=== PATIENT | female | born 2000 | race Caucasian/White ===

== ENCOUNTER 2024-06-04 16:00 | Emergency (ER) | payer OTHER, SELFPAY ==
[2024-06-04 16:06] VITALS: BP 153/95; PULSE 107; RESP 18; TEMP 36.7; O2SAT 99; BMI 20.1
[2024-06-04 16:28] LABS: Microscopic, Urine URINE MICROSCOPIC (MICROSCOPIC)
--- NOTE | 2024-06-04 17:10 | ED_ITS ---
<Statement entered by Gilma Gonsalez DO - 06/05/24 00:39> I was consulted by the ROSA, and we discussed the complexity of the problems being addressed. I approved the treatment and management plan for this patient's care in the emergency department, thus performing a substantive portion of the medical decision making. Patient has findings consistent with enteritis on CT scan. She also has a rim-enhancing cyst with internal complexity and possible enhancing soft tissue mural nodularity according to radiology read of the CT scan, which is concerning. She does not have any concern for torsion based on exam, she is not have any pain on that side. Cyst also is not large enough to be concerning for torsion. 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 I feel that she would benefit from very close follow-up with gynecology for this, so instructions were given. Gilma Gonsalez DO Discharge Plan Disposition Patient Disposition: Home, Self-Care Prescriptions Prescriptions: New Gas Relief (simethicone) 250 mg capsule 250 mg PO BID PRN (Reason: abdominal distention) Qty: 60 0RF Referrals Follow up/Referrals: Sol Perez DO [Staff Physician] - See instructions Ava Chavez [Primary Care Provider] - See instructions Manuel Murillo II, MD [Staff Physician] - See instructions (Constipation PIMENTEL) Activity Restrictions/Add. Instructions Additional Instructions/Restrictions: Please utilize the disimpaction sheet that I went over with you along with taking the simethicone. I have referred you to gastroenterology for further workup of constipation, and I recommend follow-up with your [employer] for evaluation of the ovarian cyst within 48 hours. Clinical Impressions Clinical Impression: Enterocolitis Constipation Qualifiers: Constipation type: unspecified constipation type Qualified Code(s): K59.00 - Constipation, unspecified Ovarian cyst Qualifiers: Laterality: right Qualified Code(s): N83.201 - Unspecified ovarian cyst, right side Instructions Patient Instructions: DI for Acute Abdominal Pain Print Language Print Language: Nauruan Discharge ED Provider: Gilma Gonsalez General Adult HPI General Chief complaint: Abdominal Pain Stated complaint: abd Pain Time Seen by Provider: 06/04/24 17:10 Mode of Arrival: Ambulatory Source of Information: Patient Description of Symptoms (Recalled from ER Triage Doc. by RN): Pt presents with c/o left lower abdominal pain that started this AM after she woke up. Pt states her last BM was yesterday. Denies n/v/d History of Present Illness HPI narrative: Patient presents for evaluation of left lower quadrant pain. Patient states that she has had acute onset and continued left lower quadrant abdominal pain all day. She denies however nausea vomiting and diarrhea. She reports passing flatus. Last BM was yesterday. She is not intolerant of oral intake. Denies fever chills shortness of breath hemoptysis hematochezia melena hematemesis hematuria vaginal discharge. Related Data Previous Rx's ?Medication ?Instructions ?Recorded simethicone 250 mg capsule (Gas 250 mg PO BID PRN abdominal 06/04/24 Relief (simethicone)) distention #60 caps Allergies Allergy/AdvReac Type Severity Reaction Status Date / Time No Known Allergies Allergy Verified 06/04/24 16:11 [facility] Disclaimer: The information contained in this section may have been updated after the patient was seen, as this information can be updated by other users. Social History Smoking Status: Current every day smoker alcohol intake: never current occupational status: employed Travel in the last 8 weeks: None ROS Obtained: Yes Systems reviewed as appropriate & no additional complaints except as documented Physical Exam General General appearance: alert and in no apparent distress Respiratory Respiratory exam: Present normal lung sounds bilaterally Cardiovascular Cardiovascular exam: Present tachycardia Neurological Exam Neurological exam: Present alert and oriented X3 Medical Decision Making Medical Records Medical records reviewed: Yes I reviewed the patient's medical records. Screening: Per USPSTF and CDC recommendations, given the prevalence of disease in our region, it is our hospital?s policy to screen for HIV and viral Hepatitis for all patients aged 18 and over and those with ongoing risk factors. Chris Inquiry Pt receiving controlled substance: No Vital Signs: 06/04/24 16:06 06/04/24 19:38 Temperature 98.1 F 98.3 F Temperature Source Oral Oral Pulse Rate 15 L Pulse Rate [Left] 107 H Respiratory Rate 18 18 Blood Pressure 120/71 Blood Pressure [Right Arm] 153/95 H Blood Pressure Mean [Right Arm] 114 Blood Pressure Source [Right Arm] Automatic Cuff Blood Pressure Position [Right Arm] Sitting 02 Sat by Pulse Oximetry 99 Oxygen Delivery Method Room Air Room Air Lab Data Lab results reviewed: Yes I reviewed the patient's lab results. Lab Results 06/04/24 16:25: Urine Color Yellow, Urine Appearance Slightly cloudy, Urine pH 6.5, Ur Specific [place] >= 1.030, Urine Protein Negative, Urine Glucose (UA) Negative, Urine Ketones Negative, Urine Blood Negative, Urine Nitrate Negative, Urine Bilirubin Negative, Urine Urobilinogen 1.0, Ur Leukocyte Esterase Negative, Urine RBC Occasional, Urine WBC 3-5, Ur Squamous Epith Cells 3-5, Urine Bacteria 3+, Urine Mucus Trace, Urine HCG, Qual Negative 06/04/24 17:32: WBC 9.2, RBC 4.39, Hgb 13.3, Hct 37.5, MCV 85.4, MCH 30.3, MCHC 35.5 H, RDW 11.9, Plt Count 257, MPV 9.7, Neut % (Auto) 64.6, Lymph % (Auto) 26.7, [place] % (Auto) 7.3, Eos % (Auto) 0.8, Baso % (Auto) 0.4, Neut # (Auto) 5.9, Lymph # (Auto) 2.5, [place]ney # (Auto) 0.7, Eos # (Auto) 0.1, Baso # (Auto) 0.0, Sodium 139, Potassium 3.6, Chloride 105, Carbon Dioxide 24, Anion Gap 13.6, BUN 14, Creatinine 0.70, Estimated Creat Clear 113, Estimated GFR 105, Est GFR ( Amer) 127, Glucose 87, Calcium 9.2, Total Bilirubin 0.4, AST 24, ALT 15, Alkaline Phosphatase 63, Total Protein 7.5, Albumin 5.1 H, Globulin 2.4, A lbumin/Globulin Ratio 2.1 H 06/04/24 17:32 06/04/24 17:32 Orders (Tests/Meds): ED MEDICATIONS Discontinued Medications Generic Name Dose Route Start Last Admin Trade Name Freq PRN Reason Stop Dose Admin Acetaminophen 1,000 mg 06/04/24 17:19 06/04/24 17:38 Acetaminophen 1,000mg/100ml Vial IV 06/04/24 17:20 1,000 mg ONCE ONE Administration Sodium Chloride 1,000 mls @ 999 mls/hr 06/04/24 17:19 06/04/24 17:43 Sod Chlor 0.9% 1000ml Bag IV 06/04/24 18:19 999 mls/hr .Q1H1M ONE Administration Iopamidol 75 ml 06/04/24 17:39 06/04/24 17:40 Iopamidol-370 (76%);100ml Bottle IV 06/04/24 17:40 75 ml ONCE ONE Administration Ketorolac Tromethamine 15 mg 06/04/24 17:19 06/04/24 17:42 Ketorolac 30mg/Ml Vial IV 06/04/24 17:20 15 mg ONCE ONE Administration Ondansetron HCl 4 mg 06/04/24 17:19 06/04/24 17:40 Ondansetron 4mg/2ml Vial IV 06/04/24 17:20 4 mg ONCE ONE Administration Sodium Chloride 10 ml 06/04/24 17:39 06/04/24 17:40 Sodium Chloride 0.9% 10ml Syr (Rad Only) IV 06/04/24 17:40 10 ml ONCE ONE Administration ORDERS Category Date Time Status CT abdomen pelvis w con Stat Cat Scan 06/04/24 17:19 Completed CBC w/Auto Diff [Complete Blood Count Auto Diff] Stat Lab 06/04/24 17:32 Completed CMP [Comprehensive Metabolic Panel] Stat Lab 06/04/24 17:32 Completed Urinalysis and Microscopic Stat Lab 06/04/24 16:25 Completed Urine , HCG Qual. Stat Lab 06/04/24 16:25 Completed Urine Culture Stat Micro 06/04/24 16:25 Received Medical Decision Narrative: In summary patient is a 24-year-old female who presents to the emergency department for evaluation of left lower quadrant abdominal pain. Patient is hypertensive 153/95 tachycardic 107 sinus tachycardia bedside monitor breathing 18 times a minute satting 98% on room air upon arrival, febrile at 90.1. Physical exam is remarkable for focal left lower quadrant tenderness to palpation without rebound or guarding or rigidity. Bowel sounds normal active.. Differential diagnosis includes ovarian cyst versus diverticulitis versus kidney stone versus urinary tract infection etc. Initial workup will be conducted with hematologic labs urinalysis CT scan abdomen pelvis. Initial interventions include crystalloid bolus Toradol Tylenol Zofran. Initial workup reviewed by me shows that her hematologic labs are nonactionable patient's test is negative urinalysis is bland and my informal TURB Tatian CT scan of the pelvis shows moderate colonic stool burden with lots of gas but no other acute abnormality. Upon repeat evaluation patient reported significant and complete resolution of her symptoms after initial intervention and is tolerating oral intake. Given this patient is appropriate discharge with a disimpaction sheet and instructions to follow. Patient given strict return precautions for continued new or worsening signs or symptoms. Critical Care Critical Care Time Critical Care Time: No
--- NOTE | 2024-06-04 17:19 | CT_ITS ---
PROCEDURE INFORMATION: Exam: CT Abdomen And Pelvis With Contrast Exam date and time: 06/04/2024 5:40 PM Age: 24 years old Clinical indication: Abdominal pain; Acute; Additional info: Acute left lower quadrant abdominal pain TECHNIQUE: Imaging protocol: Computed tomography of the abdomen and pelvis with contrast. Radiation optimization: All CT scans at this facility use at least one of these dose optimization techniques: automated exposure control; mA and/or kV adjustment per patient size (includes targeted exams where dose is matched to clinical indication); or iterative reconstruction. Contrast material: ISOVUE; Contrast volume: 75 ml; Contrast route: IV; COMPARISON: No relevant prior studies available. FINDINGS: Lungs: Lung bases are clear as visualized. Heart: Base of heart is unremarkable as visualized. Liver: Normal. No mass. Gallbladder and biliary ducts: Normal. No calcified stones. No ductal dilation. Pancreas: Normal. No ductal dilation. Spleen: Normal. No splenomegaly. Adrenal glands: Normal. No mass. Kidneys and ureters: Normal. No hydronephrosis. Stomach and bowel: Multiple loops of fluid dilated bowel. Moderate colonic stool burden. Appendix: No evidence of appendicitis. Intraperitoneal space: Unremarkable. No free air. No significant fluid collection. Vasculature: Unremarkable. No abdominal aortic aneurysm. Lymph nodes: Unremarkable. No enlarged lymph nodes. Urinary bladder: Unremarkable as visualized. Reproductive: Right adnexal rim enhancing cyst with suggestion of some possible enhancing soft tissue mural nodularity, lesion measures about 2.3 x 2.1 cm (series 3, image 88). Bones/joints: Unremarkable. No acute fracture. Soft tissues: Unremarkable. IMPRESSION: 1. Findings which can be seen in enteritis, correlate clinically. 2. Rim enhancing cyst with internal complexity and possible enhancing soft tissue mural nodularity noted in the right adnexa. Recommend ultrasound for further assessment.
--- NOTE | 2024-06-04 17:24 | PC.NURSE ---
lab called to add on urine
[2024-06-04 17:30] LABS: Urine Pregnancy, HCG Qual. Negative (Negative)
[2024-06-04 17:34] LABS: Bilirubin,Urine Negative (Negative); Blood, Urine Negative (Negative); Color,Urine YELLOW (Yellow); Glucose,Urine (UA) Negative (Negative); Ketones,Urine Negative (Negative); Leukocyte Esterase,Urine Negative (Negative); Nitrate,Urine Negative (Negative); PH,Urine 6.5 (5.0-8.5); Protein,Urine Negative (Negative); Specific Gravity, Urine >= 1.030 (1.005-1.030)
[2024-06-04] MEDS: ACETAMINOPHEN 1,000MG/100ML VIAL 1000 MG IV (17:38)
[2024-06-04] MEDS: IOPAMIDOL-370 (76%);100ML BOTTLE 75 ML IV (17:40)
[2024-06-04] MEDS: ONDANSETRON 4MG/2ML VIAL 4 MG IV (17:40)
[2024-06-04] MEDS: SODIUM CHLORIDE 0.9% 10ML SYR (RAD ONLY) 10 ML IV (17:40)
[2024-06-04] MEDS: KETOROLAC 30MG/ML VIAL 15 MG IV (17:42)
[2024-06-04] MEDS: 0.9 % SODIUM CHLORIDE 1000ML 1,000 ML 999 ML IV (17:43)
[2024-06-04 17:59] LABS: Basophils % 0.4 % (0.1-2.0); Eosinophils # 0.1 K/mm3 (0.0-0.4); Eosinophils % 0.8 % (0.1-12.0); Hematocrit 37.5 % (37.0-47.0); Hemoglobin 13.3 g/dL (12.2-16.2); Lymphocytes # 2.5 K/mm3 (0.7-4.5); Lymphocytes % 26.7 % (10-50); Mean Corpuscular HGB Conc 35.5 g/dL (31.8-35.4); Mean Corpuscular Hemoglobin 30.3 pg (27.0-31.2); Mean Corpuscular Volume 85.4 fl (81-99); Mean Platelet Volume 9.7 fl (7.4-10.4); Monocytes # 0.7 K/mm3 (0.1-1.0); Monocytes % 7.3 % (1.7-9.3); Neutrophils # 5.9 K/mm3 (1.8-7.8); Neutrophils % 64.6 % (37.0-80.0); Platelet Count 257 K/mm3 (142-424); Red Blood Count 4.39 M/mm3 (4.20-5.40); Red Cell Distribution Width 11.9 % (11.5-17.5); White Blood Count 9.2 K/mm3 (4.8-10.8)
[2024-06-04 18:00] LABS: Albumin Level 5.1 g/dl (3.5-5.0); Chloride 105 mmol/L (98-107)
[2024-06-04 18:01] LABS: Potassium 3.6 mmoL/L (3.5-5.1); Sodium 139 mmol/L (136-145)
[2024-06-04 18:03] LABS: Alanine Aminotransferase 15 U/L (12-78); Anion Gap 13.6 mEq/L (5-15); Aspartate Amino Transferase 24 U/L (14-36); Blood Urea Nitrogen 14 mg/dl (7-17); Carbon Dioxide 24 mmol/L (22.0-30.0); Creatinine Clearance Estimated 113 mL/min (50-200); Estimated Glomerular Filt Rate 105 ml/min (>60); GFR (African American) 127 ML/MIN (>60)
[2024-06-04 18:04] LABS: Albumin/Globulin Ratio 2.1 (1.1-1.8); Alkaline Phosphatase 63 U/L (38-126); Bilirubin,Total 0.4 mg/dl (0.2-1.3); Calcium 9.2 mg/dl (8.4-10.2); Globulin 2.4 g/dL (1.3-3.2); Glucose 87 mg/dl (74-100); Total Protein,Serum 7.5 g/dl (6.3-8.2)
[2024-06-04 19:38] VITALS: BP 120/71; PULSE 15; RESP 18; TEMP 36.8; O2SAT 98
[2024-06-04 20:02] LABS: Appearance,Urine Slightly Cloudy (Clear); Bacteria,Urine 3+ /lpf; Mucus,Urine Trace /lpf; RBC,Urine Occasional #/hpf (0-3)
== END 2024-06-04 19:35 | disposition home or self-care (01) ==
PROVIDERS: Physician Assistant; Emergency Provider Emergency Medicine; PCP Hospitalist
DX: K52.9 Noninfective gastroenteritis and colitis, unspecified (principal); N83.201 Unspecified ovarian cyst, right side; K59.00 Constipation, unspecified; R10.32 Left lower quadrant pain; Z72.0 Tobacco use
CPT/HCPCS: 74177; 80053; 81001; 81025; 85025; 87086; 96361; 96374; 96375; 99285; J0131; J1885; J2405; J7030; Q9967

== ENCOUNTER 2024-06-17 08:45 | Outpatient (CLI) | payer OTHER, SELFPAY ==
--- NOTE | 2024-06-17 08:46 | US_ITS ---
PROCEDURE: US TRANSVAGINAL CLINICAL INDICATION: ovarian cyst(F/u ct scan) COMPARISON: CT CT ABDOMEN PELVIS W CON from 06/04/2024 FINDINGS: Transvaginal sonographic images of the pelvis were obtained. UTERUS: 7.7 cm x 4.9 cmx 3.2cm anteverted with a combined endometrial thickness of 7.2mm. The endometrium appears trilaminar. LEFT OVARY: [id number] with a volume of 3.8ml. There are several small follicles. RIGHT OVARY: 4cmx [id number] with a volume of 11.2ml. There are multiple small follicles giving the ovary a polycystic appearance. The largest follicle measures 1.1 cm. Both ovaries are seen and appear normal. Doppler flow to both ovaries are seen. There is trace fluid in the cul-de-sac. IMPRESSION: 1. Anteverted uterus normal in shape and size. The endometrium measures 7.2 mm and appears trilaminar. 2. Both ovaries are seen and appear polycystic. The right ovary appears more polycystic than the left ovary. 3. The rim enhancing lesion described on the CT scan is not seen on ultrasound today. A follow-up CT may be considered in 6-8 weeks. 4. There is trace fluid in the cul-de-sac Dictated by: Himanshu Coppola MD 06/17/2024 14:04 Himanshu Coppola MD in OV 06/17/2024 14:04
== END 2024-06-17 23:59 | disposition home or self-care (01) ==
LOC: RAD 08:46
PROVIDERS: PCP Obstetrics & Gynecology; Visit Provider Obstetrics & Gynecology
DX: N83.201 Unspecified ovarian cyst, right side (principal)
CPT/HCPCS: 76830